=== PATIENT | male | born 1965 | race Two or more races ===

== ENCOUNTER 2017-04-20 07:19 | Emergency (ER) | payer SELFPAY ==
[~2017-04-20] VITALS: Ht 165.1 cm; Wt 75.0 kg
[2017-04-20] MEDS ORDERED: IBUPROFEN 600 MG TABLET PO ONE (08:30)
[2017-04-20 10:09] VITALS: BP 140/80
== END 2017-04-20 10:46 | disposition home or self-care (01) ==
LOC: EMS 07:26
DX: S13.4XXA Sprain of ligaments of cervical spine, initial encounter (principal); M54.5 Low back pain; M79.661 Pain in right lower leg; V43.62XA Car passenger injured in collision with other type car in traffic accident, initial encounter; Y93.89 Activity, other specified; Y92.89 Other specified places as the place of occurrence of the external cause; Y99.8 Other external cause status
CPT/HCPCS: 72125; 99284